=== PATIENT | male | born 1985 | race Caucasian/White ===

== ENCOUNTER 2018-10-17 11:52 | Emergency (ER) | payer OTHER ==
[~2018-10-17] VITALS: Ht 167.6 cm; Wt 60.0 kg
--- NOTE | 2018-10-17 12:00 | ERD ---
ER Documentation Chief Complaint Chief Complaint Fainted HPI The patient is a 32-year-old male, presenting to the ER because he fainted for 15 seconds at home, unwitnessed. He did not remember what happened. He has been drinking this morning. He had 3 episodes of syncope in the last week and a half. When he was in [place] 3 days ago he had a syncopal episode and was seen in the hospital. He came back to [place] last night. He did not have any aura prior to syncope, denies seizure activity, denies tongue bite/fecal/urinary incontinence. He denies neck pain, chest pain, dyspnea, abdominal pain, vomiting, dizzy, diarrhea. He drinks socially, denies drug, denies illicit drug Past medical history: ADHD Past surgical history: None ROS All systems reviewed and are negative except as per history of present illness. Medications Home Meds No Active Prescriptions or Reported Meds Physical Exam Vitals Vital Signs Date Temp Pulse Resp B/P (MAP) Pulse Ox O2 O2 Flow FiO2 Time Delivery Rate 10/17/18 98.2 87 20 136/98 97 12:17 (111) Physical Exam Const: No acute distress. Head: Atraumatic. Eyes: Normal Conjunctiva. ENT: Normal External Ears, Nose and Mouth. Neck: Full range of motion. No meningismus. Resp: Clear to auscultation bilaterally. Cardio: Regular rate and rhythm. Abd: Soft, non distended, normal bowel sounds, non tender. Skin: No petechiae or rashes. Back: No midline or flank tenderness. Ext: No cyanosis, or edema. Neur: Awake and alert. No focal deficit Psych: Normal Mood and Affect. Result Diagram: 10/17/18 1220 10/17/18 1220 Results 24 hrs Laboratory Tests Test 10/17/18 12:20 10/17/18 12:30 10/17/18 12:48 10/17/18 13:20 White Blood Count 5.0 10^3/ul Red Blood Count 4.85 10^6/ul Hemoglobin 16.4 g/dl Hematocrit 48.4 % Mean Corpuscular 99.8 fl Volume Mean Corpuscular 33.8 pg Hemoglobin Mean Corpuscular 33.9 g/dl Hemoglobin Concent Red Cell 11.9 % Distribution Width Platelet Count 253 10^3/UL Mean Platelet 10.3 fl Volume Immature 0.000 % Granulocytes % Neutrophils % 35.5 % Lymphocytes % 46.0 % Monocytes % 13.7 % Eosinophils % 3.6 % Basophils % 1.2 % Nucleated Red Blood 0.0 /100WBC Cells % Immature 0.000 10^3/ul Granulocytes # Neutrophils # 1.8 10^3/ul Lymphocytes # 2.3 10^3/ul Monocytes # 0.7 10^3/ul Eosinophils # 0.2 10^3/ul Basophils # 0.1 10^3/ul Nucleated Red Blood 0.0 10^3/ul Cells # Sodium Level 145 mmol/L Potassium Level 5.1 mmol/L Chloride Level 106 mmol/L Carbon Dioxide 31 mmol/L Level Anion Gap 8 Blood Urea Nitrogen 9 mg/dl Creatinine 0.85 mg/dl Est Glomerular > 60 mL/min Filtrat Rate mL/min Glucose Level 93 mg/dl Calcium Level 9.6 mg/dl Troponin I < 0.012 ng/ml Ethyl Alcohol Level 267.0 mg/dl D-Dimer 295.82 ng/ml D-Dimer Comment Bedside Glucose 83 mg/dL Urine Opiates Positive Screen Urine Barbiturates Negative Urine Amphetamines Negative Screen Urine Negative Benzodiazepines Screen Urine Cocaine Negative Screen Urine Cannabinoids Negative Procedures/MDM [place] [address] Radiology Main Line: [phone] DIAGNOSTIC IMAGING REPORT Patient: SERAFIN SELF : 1985 Age: 33 Sex: M MR #: [id number] DOS: 10/17/18 1207 Ordering MD: BEATRIZ GROSS MD Location: E/R Room/Bed: PROCEDURE: CT Brain without contrast CLINICAL INDICATION: Syncope. Altered mental status. TECHNIQUE: A CT of the brain was performed on multidetector high-resolution CT scanner utilizing axial sections from the skull base through the vertex without contrast. The scan was reviewed in soft tissue brain and high frequency resolution bone algorithm windows. Images were reviewed on a high-resolution PACS workstation. DICOM images are available. CTDI = 48.02 mGy and the DLP = 798.35 mGy-cm. One or more of the following dose reduction techniques were used: - Automated exposure control. - Adjustment of the mA and/or kV according to patient size. Use of iterative reconstruction technique. COMPARISON: None available FINDINGS: The ventricles and sulci are symmetric and normal in size and morphology. There is no evidence of intracranial hemorrhage, mass effect, edema or midline shift. No abnormal intra-axial or extra-axial fluid collections are seen. The density of the brain is normal and the roldan/white matter differentiation is well preserved. Brainstem and posterior fossa structures are equally unremarkable. The osseous structures and visualized paranasal sinuses are unremarkable. The surrounding soft tissue scalp and bony calvarium are intact and normal. IMPRESSION: 1. Unremarkable CT brain. RPTAT: AAEE .Robbie Zelaya MD, Date Time Electronically viewed and signed by .Robbie Zelaya MD, MD on 10/17/2018 13:36 .B/ CC: BEATRIZ GROSS MD [id number] [place] [address] Radiology Main Line: [phone] DIAGNOSTIC IMAGING REPORT Patient: SERAFIN SELF : 1985 Age: 33 Sex: M MR #: [id number] DOS: 10/17/18 1207 Ordering MD: BEATRIZ GROSS MD Location: E/R Room/Bed: PROCEDURE: XR Chest. CLINICAL INDICATION: Patient experiencing Syncope. TECHNIQUE: Portable AP view of the chest was obtained. COMPARISON: None. FINDINGS: No pulmonary consolidation or edema. No effusion or pneumothorax. Cardiac silho uette is normal. No acute osseous abnormality. IMPRESSION: No evidence for active cardiopulmonary disease. RPTAT:AAJJ Physician Joel Date Time Electronically viewed and signed by Physician Joel on 10/17/2018 13:1 5 RF/ CC: BEATRIZ GROSS MD [phone] EKG: Read by emergency physician Rate/Rhythm: Normal Sinus Rhythm 76 beats/min QRS, ST, T-waves: No ST elevation, no T inversion Impression: Normal EKG UDS Pending MEDICAL MAKING DECISION: The patient is a 33-year-old male, presenting with questionable syncope, most likely due to alcohol intoxication. He is stable for outpatient follow-up The differential diagnoses considered include but are not limited to arrhythmogenic right ventricular dysplasia, Brugada syndrome, left ventricular hypertrophy, pulmonary embolism, QT abnormality, [id number]. Departure Diagnosis: Primary Impression: Syncope Additional Impression: Alcohol abuse Condition: Good Comments The patient's blood pressure was elevated (>120/80) but appears stable without evidence of hypertension emergency or urgency. The patient was counseled about the risks of hypertension and urged to pursue outpatient monitoring and therapy within a week with their primary care physician. I discussed the findings with the patient. I advised the patient to follow-up with the primary physician in about 1-2 days for reevaluation and referral to cardiology/neurology, sooner if needed and return if any concern. Disclaimer: Inadvertent spelling and grammatical errors are likely due to EHR/dictation software use and do not reflect on the overall quality of patient care. Also, please note that the electronic time recorded on this note does not necessarily reflect the actual time of the patient encounter. BEATRIZ GROSS MD October 17, 2018 12:00
[2018-10-17 12:17] VITALS: Ht 167.6 cm; Wt 60.0 kg
[2018-10-17 13:55] VITALS: BP 129/87; PULSE 79; RESP 18
== END 2018-10-17 14:08 | disposition home or self-care (01) ==
LOC: E/R 11:52
DX: R55 Syncope and collapse (principal); F10.10 Alcohol abuse, uncomplicated
CPT/HCPCS: 36415; 70450; 71045; 80048; 80307; 82962; 84484; 85025; 85378; 93005